=== PATIENT | male | born 1955 | race Caucasian/White ===

== ENCOUNTER → 2023-06-14 08:14 | Outpatient (BNVA) | payer MEDICARE, SELFPAY | PROVIDERS: PCP Family Medicine; Referring Provider Internal Medicine Hematology & Oncology; Visit Provider Psychiatry & Neurology Neurology | DX: G62.9 Polyneuropathy, unspecified (principal); G25.3 Myoclonus; R20.2 Paresthesia of skin; M79.604 Pain in right leg; M79.605 Pain in left leg | CPT/HCPCS: 99203 ==

== ENCOUNTER → 2023-08-19 11:45 | Outpatient (BNVA) | payer MEDICARE, SELFPAY | PROVIDERS: PCP Family Medicine; Visit Provider Psychiatry & Neurology Neurology | DX: G62.89 Other specified polyneuropathies (principal); M79.604 Pain in right leg; M79.605 Pain in left leg; R20.2 Paresthesia of skin | CPT/HCPCS: 95910 ==

== ENCOUNTER → 2024-02-21 14:36 | Outpatient (BNVA) | payer MEDICARE, SELFPAY | PROVIDERS: PCP Family Medicine; Visit Provider Psychiatry & Neurology Neurology | DX: G62.9 Polyneuropathy, unspecified (principal); G25.3 Myoclonus; R20.2 Paresthesia of skin; Z90.2 Acquired absence of lung [part of]; C34.31 Malignant neoplasm of lower lobe, right bronchus or lung | CPT/HCPCS: 99212; 99213 ==